=== PATIENT | female | born 1985 | race Caucasian/White ===

== ENCOUNTER 2025-03-26 18:36 | Emergency (ER) | payer OTHER ==
[2025-03-26] MEDS ORDERED: ONDANSETRON 4 MG/2 ML VIAL ONE (19:43)
[2025-03-26] MEDS ORDERED: KETOROLAC 30 MG/ML INJ ONE (19:43)
[2025-03-26] MEDS ORDERED: NA CHLORIDE 0.9% 1,000 ML ONE (19:43)
[2025-03-26 19:45] LABS: Absolute Lymphocytes (CBC) 1.7 K/uL (0.7-4.9); Hematocrit 38.1 % (36.0-45.0); Hemoglobin 12.4 g/dL (12.0-15.0); MCH 26.9 pg (27.0-35.0); MCHC 32.6 g/dL (32.0-36.0); MCV 82.6 fL (80-100); MPV 10.8 fL (7.6-11.3); Nucleated RBC Absolute Count 0.0 (0-0); Nucleated Red Blood Cells % 0.0 % (0-0); RBC Red Blood Cell Count 4.61 M/uL (3.86-4.86); White Blood Count 8.70 thou/uL (4.3-10.9)
[2025-03-26 19:50] LABS: Sqamous Epithelial <5 /HPF (None Seen); Urine Culture Reflex Order NOT NEEDED; Urine Microscopic Reflex YN ORDER UMIC
[2025-03-26 19:59] LABS: ALT/SGPT 18.0 U/L (13-56); AST/SGOT 13.0 U/L (15-37); Albumin 3.9 g/dL (3.4-5.0); Albumin/Globulin Ratio 1.1 (1.1-1.8); Alkaline Phosphatase 53.0 U/L (45-117); Anion Gap 8.8 mEq/L (5.0-15.0); BUN Blood Urea Nitrogen 11.0 mg/dL (7-18); Globulin 3.6 g/dL (2.3-3.5); Glucose Level 86.0 mg/dL (74-106); Lipase 48.0 U/L (13-75); Potassium 3.8 mEq/L (3.5-5.1)
--- NOTE | 2025-03-26 21:21 | RAD REPORT ---
EXAMINATION: CT Abdomen Pelvis W Contrast CLINICAL INDICATION: Female, 40 years old. ABD PAIN TECHNIQUE: CT abdomen and pelvis was performed, after the administration of IV contrast[facility] Axial, sagittal and coronal reconstructions were obtained. One or more of the following dose reduction techniques were used: Automated exposure control, adjustment of the mA and k V according to patient size, and iterative reconstruction. Unless otherwise specified, incidental findings do not require dedicated imaging follow-up. COMPARISON: 12/19/2024 FINDINGS: LOWER CHEST: The visualized lung bases are clear. LIVER: Normal in size and contour. No focal lesion. BILIARY SYSTEM: No suspicious abnormalities. SPLEEN: Normal size. No focal lesion. PANCREAS: No mass, ductal dilation, or alfredo-pancreatic fluid. ADRENALS: Normal; no mass. KIDNEYS: Normal size and contour. No hydronephrosis. URINARY BLADDER: Suboptimally distended limiting evaluation. GASTROINTESTINAL TRACT: No evidence of free air, significant intra-abdominal free fluid, bowel obstru ction or abscess. APPENDIX: Appendix surgically absent. LYMPH NODES: No lymphadenopathy. MUSCULOSKELETAL: No acute or suspicious osseous abnormality. ADDITIONAL FINDINGS: IUD in place. Dominant left ovarian 3.9 cm cyst or follicle. IMPRESSION: No acute or concerning abnormalities seen in the abdomen or pelvis.
--- NOTE | 2025-03-26 21:29 | ER ---
Nurse's Notes [facility] Name: Ashley Mcintosh Age: 40 yrs Sex: Female : 1985 Arrival Date: 03/26/2025 Time: 18:36 Bed 8 Private MD: Diagnosis: Lower abdominal pain, unspecified Presentation: 03/26 19:13 Chief complaint: Patient states: started having severe lower abdominal pain that vc1 radiated through the stomach and into my chest. It came in waves of intense cramping. 19:13 Coronavirus screen: Client denies travel out of the [place] in the last 14 days. At this vc1 time, the client does not indicate any symptoms associated with coronavirus-19. Ebola Screen: Patient negative for fever greater than or equal to 101.5 degrees Fahrenheit, and additional compatible Ebola Virus Disease symptoms Patient denies exposure to infectious person. Patient denies travel to an Ebola-affected area in the 21 days before illness onset. No symptoms or risks identified at this time. Initial Sepsis Screen: Does the patient meet any 2 criteria? No. Patient's initial sepsis screen is negative. Does the patient have a suspected source of infection? No. Patient's initial sepsis screen is negative. Risk Assessment: Do you want to hurt yourself or someone else? Patient reports no desire to harm self or others. Onset of symptoms was March 26, 2025 at 17:15. 19:13 Method Of Arrival: Ambulatory vc1 19:13 Acuity: CHYNA 3 vc1 Triage Assessment: 19:13 General: Appears in no apparent distress. uncomfortable, well groomed, well developed, vc1 well nourished, Behavior is calm, cooperative, appropriate for age. Pain: Complains of pain in right lower quadrant and left lower quadrant Pain radiates to chest and abdomen Pain currently is 3 out of 10 on a pain scale. at worst was 10 out of 10 on a pain scale. Quality of pain is described as crampy, radiating, sharp, Pain began suddenly, Is continuous, episodic, Also complains of nausea, dizziness. EENT: No deficits noted. No signs and/or symptoms were reported regarding the EENT system. Neuro: Level of Consciousness is awake, alert, obeys commands, Oriented to person, place, time, situation, Appropriate for age. Cardiovascular: Heart tones S1 S2 present Capillary refill < 3 seconds Patient's skin is warm and dry. Respiratory: Airway is patent Respiratory effort is even, unlabored, Respiratory pattern is regular, symmetrical. GI: Abdomen is non-distended, Reports lower abdominal pain. : No deficits noted. No signs and/or symptoms were reported regarding the genitourinary system. Derm: Skin is intact, is healthy with good turgor, Skin is dry, Skin is normal, Skin temperature is warm. Musculoskeletal: Circulation, motion, and sensation intact. Range of motion: intact in all extremities. 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 - Infectious Disease History:: Denies. - Social history:: Smoking status: Patient denies any tobacco usage or history of. Screenin:13 [facility] ED Fall Risk Assessment (Adult) History of falling in the last 3 months, vc1 including since admission No falls in past 3 months (0 pts) Confusion or Disorientation No (0 pts) Intoxicated or Sedated No (0 pts) Impaired Gait No (0 pts) Mobility Assist Device Used No (0 pt) Altered Elimination No (0 pt) Score/Fall Risk Level 0 - 2 = Low Risk Oriented to surroundings, Maintained a safe environment, Educated pt \T\ family on fall prevention, incl call for assistance when getting out of bed, Assessed \T\ reinforced patient's understanding of fall precautions, Hourly rounding (assess needs \T\ fall precautionary measures) done. Abuse screen: Denies threats or abuse. Nutritional screening: No deficits noted. Tuberculosis screening: No symptoms or risk factors identified. Assessment: 19:55 General: Appears uncomfortable, Behavior is cooperative. Pain: Complains of pain in tb4 abdomen Pain does not radiate. Pain currently is 3 out of 10 on a pain scale. Quality of pain is described as sharp, Pain began suddenly, Is intermittent. Neuro: Level of Consciousness is awake, alert, obeys commands, Oriented to person, place, time, situation, Moves all extremities. Full function Gait is steady, Speech is normal, Facial symmetry appears normal. Cardiovascular: Patient's skin is warm and dry. Respiratory: Respiratory effort is even, unlabored, Respiratory pattern is regular, symmetrical. GI: Bowel sounds present X 4 quads. Abd is soft and non tender X 4 quads. : No signs and/or symptoms were reported regarding the genitourinary system. EENT: No signs and/or symptoms were reported regarding the EENT system. Derm: No signs and/or symptoms reported regarding the dermatologic system. Skin is intact, is healthy with good turgor, Skin is dry, Skin is pink, warm \T\ dry. Musculoskeletal: Circulation, motion, and sensation intact. Range of motion: intact in all extremities. 21:50 Reassessment: Patient denies pain at this time. Patient states feeling better. Patient tb4 states symptoms have improved. Vital Signs: 19:13 BP 123 / 91; Pulse 69; Resp 17; Temp 97.9; Pulse Ox 100% ; Weight 72.57 kg; Height 5 vc1 ft. 2 in. ; Pain 3/10; 19:55 BP 135 / 95; Pulse 72; Resp 17; Pulse Ox 98% on R/A; Weight 72.57 kg; Height 5 ft. 2 tb4 in. ; Pain 3/10; 21:02 BP 134 / 83; Pulse 77; Resp 20; Pulse Ox 99% on R/A; tb4 21:49 BP 138 / 89; Pulse 73; Resp 20; Pulse Ox 98% on R/A; Pain 0/10; tb4 19:55 Body Mass Index 29.26 (72.57 kg, 157.48 cm) tb4 19:13 Pain Scale: Adult vc1 19:55 Pain Scale: Adult tb4 21:49 Pain Scale: Adult tb4 ED Course: 18:38 Patient arrived in ED. im 18:40 Mansi Erazo FNP-C is PHCP. kb 18:40 Renaldo Connell DO is Attending Physician. kb 19:13 Arm band placed on right wrist. vc1 19:13 Patient has correct armband on for positive identification. Bed in low position. Call vc1 light in reach. Provided Education on: Plan of care. Pulse ox on. NIBP on. 19:27 Inserted saline lock: 20 gauge in right antecubital area, using aseptic technique. ha1 Blood collected. Flushed with 10 mL NS. 19:33 Triage completed. vc1 19:55 No provider procedures requiring assistance completed. Initial lab(s) drawn, by ED tb4 staff, Urine collected: clean catch specimen, clear. 20:17 CT Abd/Pelvis - IV Contrast Only In Process Unspecified. EDMS 21:51 IV discontinued, intact, bleeding controlled, No redness/swelling at site. Pressure tb4 dressing applied. Administered Medications: 19:54 Drug: TORadol - Ketorolac IVP 15 mg IVP once Route: IVP; Site: right antecubital; tb4 20:43 Follow up: Response: No adverse reaction; Pain is decreased tb4 19:54 Drug: Ondansetron IVP 4 mg IVP once; over 2 minutes Route: IVP; Site: right antecubital;tb4 20:43 Follow up: Response: No adverse reaction; Nausea is decreased tb4 19:54 Drug: NS 0.9% IV 1000 ml IV at 1 bolus Per protocol; to be given as a bolus over 60 tb4 minutes Route: IV; Rate: 1 bolus; Site: right antecubital; 21:54 Follow up: Response: No adverse reaction; IV Status: Completed infusion tb4 Medication: 19:45 VIS not applicable for this client. vc1 Outcome: 21:28 Discharge ordered by . kb 21:50 Discharged to home ambulatory, tb4 21:50 Condition: stable 21:50 Discharge instructions given to patient, Instructed on discharge instructions, follow up and referral plans. Demonstrated understanding of instructions, follow-up care, 22:10 Patient left the ED. tb4 Signatures: Dispatcher [employer] EDMS Mansi Erazo, Tonia Bobo RN RN vc1 Ame Barger RN RN ha1 Sadie Ramirez Terri RN RN tb4
--- NOTE | 2025-03-26 21:29 | EDPHYS ---
Physician Documentation [facility] Name: Ashley Mcintosh Age: 40 yrs Sex: Female : 1985 Arrival Date: 03/26/2025 Time: 18:36 Bed 8 Private MD: ED Physician Renaldo Connell HPI: 03/26 19:51 This 40 yrs old Female presents to ER via Ambulatory with complaints of Abdominal Pain. kb 19:51 Patient is a 40-year-old female presents for lower abdominal pain that started at 1715 kb this evening. Denies nausea, vomiting, diarrhea, urinary symptoms, fever.. 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 - Infectious Disease History:: Denies. - Social history:: Smoking status: Patient denies any tobacco usage or history of. ROS: 19:51 Constitutional: As per HPI kb Exam: 19:51 Constitutional: This is a well developed, well nourished patient who is awake, alert, kb and in no acute distress. Head/Face: Normocephalic, atraumatic. ENT: Moist Mucous membranes Cardiovascular: Regular rate Respiratory: Respirations even and unlabored. No increased work of breathing. Talking in full sentences Skin: Warm, dry with normal turgor. Normal color. MS/ Extremity: Pulses equal, no cyanosis. Neurovascular intact. Full, normal range of motion. Neuro: Awake and alert, GCS 15, oriented to person, place, time, and situation. 19:51 Abdomen/GI: Inspection: abdomen appears normal, Bowel sounds: normal, Palpation: soft, in all quadrants, moderate abdominal tenderness, in the right lower quadrant and left lower quadrant, Vital Signs: 19:13 BP 123 / 91; Pulse 69; Resp 17; Temp 97.9; Pulse Ox 100% ; Weight 72.57 kg; Height 5 vc1 ft. 2 in. ; Pain 3/10; 19:55 BP 135 / 95; Pulse 72; Resp 17; Pulse Ox 98% on R/A; Weight 72.57 kg; Height 5 ft. 2 tb4 in. ; Pain 3/10; 21:02 BP 134 / 83; Pulse 77; Resp 20; Pulse Ox 99% on R/A; tb4 21:49 BP 138 / 89; Pulse 73; Resp 20; Pulse Ox 98% on R/A; Pain 0/10; tb4 19:55 Body Mass Index 29.26 (72.57 kg, 157.48 cm) tb4 19:13 Pain Scale: Adult vc1 19:55 Pain Scale: Adult tb4 21:49 Pain Scale: Adult tb4 MDM: 18:40 Medical Screening Exam initiated kb 21:28 Data reviewed: vital signs, nurses notes. kb 21:29 Differential diagnosis: cholecystitis, Cholelithiasis, diverticulitis, non-specific abd kb pain, Pyelonephritis, Ureterolithiasis, urinary tract infection. Counseling: I had a detailed discussion with the patient and/or guardian regarding the historical points, exam findings, and any diagnostic results supporting the discharge/admit diagnosis, lab results, radiology results, the need for outpatient follow up, a family practitioner, to return to the emergency department if symptoms worsen or persist or if there are any questions or concerns that arise at home. Response to treatment: the patient's symptoms have resolved after treatment. 03/26 18:46 Order name: CBC with Diff; Complete Time: 19:56 kb 03/26 18:46 Order name: CMP; Complete Time: 20:00 kb 03/26 18:46 Order name: Lipase; Complete Time: 20:00 kb 03/26 18:46 Order name: Test, Urine; Complete Time: 19:56 kb 03/26 18:46 Order name: UA Rfx Alvaro Cult if indicated; Complete Time: 19:51 kb 03/26 18:46 Order name: CT Abd/Pelvis - IV Contrast Only; Complete Time: 21:22 kb 03/26 18:46 Order name: IV Saline Lock; Complete Time: 19:26 kb 10/21 18:46 Order name: Labs collected and sent; Complete Time: 19:54 kb Administered Medications: 19:54 Drug: TORadol - Ketorolac IVP 15 mg IVP once Route: IVP; Site: right antecubital; tb4 20:43 Follow up: Response: No adverse reaction; Pain is decreased tb4 19:54 Drug: Ondansetron IVP 4 mg IVP once; over 2 minutes Route: IVP; Site: right antecubital;tb4 20:43 Follow up: Response: No adverse reaction; Nausea is decreased tb4 19:54 Drug: NS 0.9% IV 1000 ml IV at 1 bolus Per protocol; to be given as a bolus over 60 tb4 minutes Route: IV; Rate: 1 bolus; Site: right antecubital; 21:54 Follow up: Response: No adverse reaction; IV Status: Completed infusion tb4 Disposition: 23:05 I was immediately available on-site in the Emergency Department for consultation in the ms3 care of the patient. . Disposition Summary: 03/26/25 21:28 Discharge Ordered Notes: Location: Home kb Condition: Stable kb Diagnosis - Lower abdominal pain, unspecified kb Followup: kb - With: Emergency Department - When: As needed - Reason: Worsening of condition Followup: kb - With: Private Physician - When: 2 - 3 days - Reason: Recheck today's complaints, Continuance of care, Re-evaluation by your physician Discharge Instructions: - Discharge Summary Sheet kb - Abdominal Pain, Adult, [id number] kb Forms: - Medication Reconciliation Form kb - Antibiotic Education kb - Prescription Opioid Use kb - Patient Portal Instructions kb - Leadership Thank You Letter kb Signatures: Dispatcher [employer] EDMS Mansi Erazo, [employer] COUNSEL-C [employer] COUNSEL-Renaldo Mcdonald, DO ms3 Tonia Woodard RN RN vc1 Vangie Alejandra RN RN tb4 Corrections: (The following items were deleted from the chart) 18:46 18:46 CBC+H.LAB.BRZ ordered. EDMS EDMS 18:46 18:46 COMPREHENSIVE METABOLIC PANEL+C.LAB.BRZ ordered. EDMS EDMS 18:46 18:46 LIPASE+C.LAB.BRZ ordered. EDMS EDMS 18:46 18:46 Test, Urine+UC.LAB.BRZ ordered. EDMS EDMS 18:46 18:46 UA Rfx Alvaor Cult if indicated+U.LAB.BRZ ordered. EDMS EDMS 18:46 Abdomen Pelvis W Con+CT.RAD.BRZ ordered. EDMS EDMS
[2025-03-27 00:35] VITALS: TEMP 97.9
[2025-03-27 00:38] VITALS: BP 138/89; O2SAT 98
== END 2025-03-26 22:10 | disposition home or self-care (01) ==
LOC: ER 18:36
DX: R10.32 Left lower quadrant pain (principal); R10.31 Right lower quadrant pain
CPT/HCPCS: 96361; 85025; 81001; 36415; 81025; 83690; 80053; 74177; 96375; 96374; 99284; Q9967; J1885; J2405; J7030